=== PATIENT | female | born 1940 | race Caucasian/White ===

== ENCOUNTER → 2018-09-30 10:38 | Outpatient (CLI) | payer MEDICARE, SELFPAY ==
--- NOTE | 2018-09-30 | DI.MG.S_ITS ---
BILATERAL DIGITAL SCREENING MAMMOGRAM 3D/2D WITH CAD: 09/30/2018 CLINICAL: Routine screening. Family history of breast cancer. Comparison is made to exams dated: 08/16/2017 mammogram - [facility], 08/15/2016 mammogram, 08/04/2015 mammogram, 07/27/2014 mammogram, 07/14/2013 mammogram, and 04/26/2009 mammogram - [facility]. There are scattered fibroglandular elements in both breasts. Current study was also evaluated with a Computer Aided Detection (CAD) system. There are benign post operative findings in the left breast. There also are benign vascular calcifications in both breasts. No significant masses, calcifications, or other findings are seen in either breast. There has been no significant interval change. IMPRESSION: There is no mammographic evidence of malignancy. A 1 year screening mammogram is recommended. This exam was interpreted at Station ID: [id number]. NOTE: For mammograms, a report in lay terms will be sent to the patient. Approximately 15% of breast malignancies will not be visualized mammographically. In the management of a palpable breast mass, a negative mammogram must not discourage biopsy of a clinically suspicious lesion. Electronically Signed By: Boby brown/gerardo:10/01/2018 13:30:01 letter sent: Normal Exam ACR BI-RADS Category 2: Benign Finding(s) 3342F
== END ==
PROVIDERS: PCP Family Medicine; Visit Provider Family Medicine
DX: Z12.31 Encounter for screening mammogram for malignant neoplasm of breast (principal); Z80.3 Family history of malignant neoplasm of breast
CPT/HCPCS: 77063; 77067

== ENCOUNTER 2019-06-29 18:04 | Emergency (ER) | payer MEDICARE, SELFPAY ==
[2019-06-29 18:18] VITALS: BP 162/89; PULSE 90; RESP 18; TEMP 36.7; O2SAT 97; BMI 22.8
[2019-06-29 19:00] LABS: Add Manual Diff / Slide Review NO; Basophils Absolute Auto 100 /uL (0-100); Basophils Percent Auto 0.7 % (0-2); Eosinophils Absolute Auto 0 /uL (0-450); Eosinophils Percent Auto 0.5 % (2-4); Hematocrit 40.3 % (36-46); Hemoglobin 13.4 g/dL (12.0-16.0); Lymphocytes Absolute Auto 2500 /uL (1100-4500); Lymphocytes Percent Auto 29.8 % (25-40); Mean Corpuscular HGB Conc 33.4 % (30-36); Mean Corpuscular Hemoglobin 31.1 PG (26-34); Mean Corpuscular Volume 93.1 fL (80-100); Monocytes Absolute Auto 800 /uL (0-900); Monocytes Percent Auto 10.1 % (3-14); Neutrophils Absolute Auto 4900 /uL (1500-7000); Neutrophils Percent Auto 58.9 % (50-75); Platelet Count 347 X10^3/uL (150-400); Red Blood Cell Count 4.32 X10^6/uL (4.0-5.2); Red Cell Distribution Width 13.8 % (11.6-14.8); White Blood Cell Count 8.3 X10^3/uL (4.5-11.0)
[2019-06-29 19:06] LABS: Prothrombin Time 11.4 SECONDS (10.1-12.7)
[2019-06-29 19:09] LABS: PTT Partial Thromboplastin Tim 33 SECONDS (26.4-36.2)
[2019-06-29 19:10] LABS: Alanine Aminotransferase 56 IU/L (<35); Albumin 4.4 g/dL (3.5-5.0); Albumin Globulin Ratio 1.3 (1.0-2.8); Alkaline Phosphatase 215 U/L (38-126); Aspartate Aminotransferase 55 IU/L (14-36); BUN Creatinine Ratio 23.8 (6-22); Bilirubin Total 0.3 mg/dL (0.2-1.3); Blood Urea Nitrogen 19 mg/dL (7-17); Calcium 9.6 mg/dL (8.4-10.2); Carbon Dioxide 29 mmol/L (22-32); Chloride 102 mmol/L (98-107); Estimated Glomerular Filt Rate > 60.0 mL/min (>60); Globulin 3.5 g/dL (1.7-4.1); Glucose 114 mg/dL (80-110); HEMOLYSIS < 15 (0-50); Potassium 3.9 mmol/L (3.4-5.1); Sodium 139 mmol/L (137-145); Total Protein 7.9 g/dL (6.3-8.2)
[2019-06-29 19:16] LABS: D Dimer 2292 ng/mL (<230)
--- NOTE | 2019-06-29 19:28 | DI.US.S_ITS ---
PROCEDURE: US PERIPH VENOUS LOW EXTREM RT INDICATIONS: R/O DVT, POSITIVE D-DIMER TECHNIQUE: Real-time imaging, as well as color and pulse Doppler interrogation, were performed of the lower extremity deep veins from the inguinal ligament to the popliteal fossa. COMPARISON: None. FINDINGS: The common femoral, femoral and popliteal veins are normally compressible, and free of intraluminal thrombus. Color and pulse Doppler demonstrate normal phasic intraluminal flow. There is normal augmentation response to distal compression maneuver. IMPRESSION: Negative for deep venous thrombosis. Note: Concordant preliminary findings given by the painter barrel upon the completion of the examination to NASEEM Looney at 2014 hrs. on June 29, 2019. Dictated by: Lee Handy M.D. on 06/29/2019 at 20:17 Approved by: Lee Handy M.D. on 06/29/2019 at 20:18
[2019-06-29 19:30] VITALS: BP 155/69; PULSE 82; RESP 20; O2SAT 96
[2019-06-29 20:00] VITALS: BP 188/84; PULSE 79; RESP 19; O2SAT 99
--- NOTE | 2019-06-29 20:01 | ED_ITS ---
HPI - Extremity Injury (Lower) <NASEEM Looney - Last Filed: 06/29/19 20:30> General Chief Complaint: Extremity Injury, Lower Stated Complaint: rt ankle pain Time Seen by Provider: 06/29/19 19:06 Mode of arrival: Wheelchair History of Present Illness HPI Narrative: 78-year-old female presents emergency department complaining of right calf pain. She recently had ortho surgery 2 weeks ago for a repair of a tib-fib fracture from falling. She also sustained a left fibula fracture in the fall. Patient woke up this morning feeling a dull aching intermittent right- sided 5/10 calf pain which has now resolved. However, she is concern for a DVT. She does not have a history of DVT and has been taking to baby aspirin since the surgery. Patient denies any other symptoms such as numbness, tingling, decrease temp in limb, nausea, vomiting, diarrhea, chest pain, shortness of breath, dizziness, or other concerns. Related Data Home Medications Medication Instructions Recorded Confirmed omeprazole 20 mg PO Q DAY #0 02/26/11 temazepam 15 mg PO HS #0 02/26/11 Allergies Allergy/AdvReac Type Severity Reaction Status Date / Time Sulfa (Sulfonamide Allergy Unknown Verified 06/29/19 18:18 Antibiotics) diphenhydramine AdvReac Verified 06/29/19 18:18 [From Benadryl] Review of Systems <NASEEM Looney - Last Filed: 06/29/19 20:30> Review of Systems Narrative: REVIEW OF SYSTEMS: GENERAL: Denies fever or chills. HENT: No head trauma. EYES: No double vision changes. CARDIOVASCULAR: No chest pain or syncope. RESPIRATORY: No shortness of breath or cough. GASTROINTESTINAL: No nausea, vomiting, diarrhea, or constipation. MUSCULOSKELETAL: Complains of calf pain, see HPI. INTEGUMENTARY: No rash. NEURO: No numbness, tingling. PSYCH: No behavior or mood changes. Patient History <NASEEM Looney - Last Filed: 06/29/19 20:30> Surgical History Status post appendectomy Status post breast biopsy Status post cholecystectomy Status post hysterectomy Family History Brother Heart disease Hypertension Father Diabetes mellitus Heart disease Hypertension High cholesterol Grandfather Diabetes mellitus Mother Cancer Sister Age: 84 High cholesterol Sister Age: 81 Autoimmune disease Exam <NASEEM Looney - Last Filed: 06/29/19 20:30> Initial Vital Signs Initial Vital Signs: Vital Signs Temperature 98.1 F 06/29/19 18:18 Pulse Rate 90 06/29/19 18:18 Respiratory Rate 18 06/29/19 18:18 Blood Pressure 162/89 H 06/29/19 18:18 Pulse Oximetry 97 06/29/19 18:18 PHYSICAL EXAMINATION: GENERAL: Well groomed, alert, and cooperative. Answers questions promptly and appropriately. Vital signs noted. HENT: Normocephalic, atraumatic. EYES: Symmetrical, sclera white, no periorbital swelling. CARDIOVASCULAR: S1 and S2 sounds normal. Regular rate and rhythm, no murmurs, clicks, or bruits. No pedal edema. RESPIRATORY: Normal respiratory rate, trachea midline, airway patent. No stridor, nasal flaring or accessory muscle use. Lungs are clear in all pang. MUSCULOSKELETAL: Slight tenderness to right calf, no knee or upper leg tenderness or bruising. Patient able to move all toes. No erythema. Normal gait and coordination. Equal tone and mass bilaterally. EXTREMITIES: CMS intact. Popliteal pulse intact. SKIN: Warm, dry, soft, appropriate color for ethnicity. No lesions, rashes, or wounds. NEURO: Alert and Oriented X 3. No sensory deficits. PSYCH: Appropriate affect and mood. <Mich Lawrence DO - Last Filed: 06/29/19 20:33> Initial Vital Signs Initial Vital Signs: Vital Signs Temperature 98.1 F 06/29/19 18:18 Pulse Rate 90 06/29/19 18:18 Respiratory Rate 18 06/29/19 18:18 Blood Pressure 162/89 H 06/29/19 18:18 Pulse Oximetry 97 06/29/19 18:18 Course <NASEEM Looney - Last Filed: 06/29/19 20:30> Orders Ordered: ED Orders 06/29/19 18:52 CBC Auto Diff [Complete Blood Count AUTO DIFF] Stat Comprehensive Metabolic Panel Stat DD [D Dimer] Stat Partial Thromboplastin Time Stat Prothrombin Time INR Stat 06/29/19 19:28 [facility] venous low extrem rt Stat Vital Signs Vital signs: Vital Signs - 8 hr 06/29/19 18:18 06/29/19 19:30 06/29/19 20:00 Temperature 98.1 F Pulse Rate 90 82 79 Respiratory Rate 18 20 19 Blood Pressure 162/89 H Blood Pressure [Right Arm] 155/69 H 188/84 H Pulse Oximetry 97 96 99 <Mich Lawrence DO - Last Filed: 06/29/19 20:33> Orders Ordered: ED Orders 06/29/19 18:52 CBC Auto Diff [Complete Blood Count AUTO DIFF] Stat Comprehensive Metabolic Panel Stat DD [D Dimer] Stat Partial Thromboplastin Time Stat Prothrombin Time INR Stat 06/29/19 19:28 perip venous low extrem rt Stat Vital Signs Vital signs: Vital Signs - 8 hr 06/29/19 18:18 06/29/19 19:30 06/29/19 20:00 Temperature 98.1 F Pulse Rate 90 82 79 Respiratory Rate 18 20 19 Blood Pressure 162/89 H Blood Pressure [Right Arm] 155/69 H 188/84 H Pulse Oximetry 97 96 99 MDM - Extremity Injury (Lower) <NASEEM Looney - Last Filed: 06/29/19 20:30> Medical Records Attestation: I reviewed the patient's medical records. Lab Data Attestation: I reviewed the patient's lab results. Result diagrams: 06/29/19 18:52 06/29/19 18:52 Labs: Lab Results 06/29/19 06/29/19 06/29/19 Range/Units 18:52 18:52 18:52 WBC 8.3 (4.5-11.0) X10^3/uL RBC 4.32 (4.0-5.2) X10^6/uL Hgb 13.4 (12.0-16.0) g/dL Hct 40.3 (36-46) % MCV 93.1 (80-100) fL MCH 31.1 (26-34) PG MCHC 33.4 (30-36) % RDW 13.8 (11.6-14.8) % Plt Count 347 (150-400) X10^3/uL Neut % (Auto) 58.9 (50-75) % Lymph % (Auto) 29.8 (25-40) % [place] % (Auto) 10.1 (3-14) % Eos % (Auto) 0.5 L (2-4) % Baso % (Auto) 0.7 (0-2) % Neut # (Auto) 4900 (0187-0305) /uL Lymph # (Auto) 2500 (9766-5852) /uL [place] # (Auto) 800 (0-900) /uL Eos # (Auto) 0 (0-450) /uL Baso # (Auto) 100 (0-100) /uL PT 11.4 (10.1-12.7) SECONDS INR 1.0 (0.9-1.3) APTT 33 (26.4-36.2) SECONDS D-Dimer 2292 H (<230) ng/mL Sodium 139 (137-145) mmol/L Potassium 3.9 (3.4-5.1) mmol/L Chloride 102 (98-107) mmol/L Carbon Dioxide 29 (22-32) mmol/L BUN 19 H (7-17) mg/dL Creatinine 0.80 (0.52-1.04) mg/dL Estimated GFR > 60.0 (>60) mL/min BUN/Creatinine Ratio 23.8 H (6-22) Glucose 114 H (80-110) mg/dL Calcium 9.6 (8.4-10.2) mg/dL Total Bilirubin 0.3 (0.2-1.3) mg/dL AST 55 H (14-36) IU/L ALT 56 H (<35) IU/L Alkaline Phosphatase 215 H (38-126) U/L Total Protein 7.9 (6.3-8.2) g/dL Albumin 4.4 (3.5-5.0) g/dL Globulin 3.5 (1.7-4.1) g/dL Albumin/Globulin Ratio 1.3 (1.0-2.8) Imaging Data Extremity x-ray #1: Radiologist's Impression: [address] [place] [id number] Ultrasound Report Signed Patient: Linh Coffey AMR#: [id number] : 1941Acct:[id number] Age/Sex: 78 / FDate of Service: 06/29/19 Loc: ED Accession Number: [id number] Procedure: US periph venous low extrem rt Ordering Provider: Chel Acharya PROCEDURE: US PERIP VENOUS LOW EXTREM RT INDICATIONS: R/O DVT, POSITIVE D-DIMER TECHNIQUE: Real-time imaging, as well as color and pulse Doppler interrogation, were performed of the lower extremity deep veins from the inguinal ligament to the popliteal fossa. COMPARISON: None. FINDINGS: The common femoral, femoral and popliteal veins are normally compressible, and free of intraluminal thrombus. Color and pulse Doppler demonstrate normal phasic intraluminal flow. There is normal augmentation response to distal compression maneuver. IMPRESSION: Negative for deep venous thrombosis. Note: Concordant preliminary findings given by the marketing services vice president upon the compl etion of the examination to NASEEM Looney at 2014 hrs. on June 29, 2019. Dictated by: Lee Handy M.D. on 06/29/2019 at 20:17 Approved by: Lee Handy M.D. on 06/29/2019 at 20:18 [facility] Narrative Medical decision making narrative: 78-year-old female presenting to the emergency department for rule out DVT to right leg post tib-fib reconstruction surgery 2 weeks ago. Patient had a positive D-dimer and a negative ultrasound. She was encouraged to repeat this test in 1-2 weeks. Differential includes muscle spasm, calf strain, and pain related to healing fracture. Less likely compartment syndrome as CMS remains intact, patient is able to move toes, pain has resolved upon presentation the emergency department. Patient was encouraged to follow up with her orthopedic next week. She agrees with plan of care verbalized understanding. <Mich Lawrence, DO - Last Filed: 06/29/19 20:33> Lab Data Labs: Lab Results 06/29/19 06/29/19 06/29/19 Range/Units 18:52 18:52 18:52 WBC 8.3 (4.5-11.0) X10^3/uL RBC 4.32 (4.0-5.2) X10^6/uL Hgb 13.4 (12.0-16.0) g/dL Hct 40.3 (36-46) % MCV 93.1 (80-100) fL MCH 31.1 (26-34) PG MCHC 33.4 (30-36) % RDW 13.8 (11.6-14.8) % Plt Count 347 (150-400) X10^3/uL Neut % (Auto) 58.9 (50-75) % Lymph % (Auto) 29.8 (25-40) % [place] % (Auto) 10.1 (3-14) % Eos % (Auto) 0.5 L (2-4) % Baso % (Auto) 0.7 (0-2) % Neut # (Auto) 4900 (8967-8604) /uL Lymph # (Auto) 2500 (1871-4947) /uL [place] # (Auto) 800 (0-900) /uL Eos # (Auto) 0 (0-450) /uL Baso # (Auto) 100 (0-100) /uL PT 11.4 (10.1-12.7) SECONDS INR 1.0 (0.9-1.3) APTT 33 (26.4-36.2) SECONDS D-Dimer 2292 H (<230) ng/mL Sodium 139 (137-145) mmol/L Potassium 3.9 (3.4-5.1) mmol/L Chloride 102 (98-107) mmol/L Carbon Dioxide 29 (22-32) mmol/L BUN 19 H (7-17) mg/dL Creatinine 0.80 (0.52-1.04) mg/dL Estimated GFR > 60.0 (>60) mL/min BUN/Creatinine Ratio 23.8 H (6-22) Glucose 114 H (80-110) mg/dL Calcium 9.6 (8.4-10.2) mg/dL Total Bilirubin 0.3 (0.2-1.3) mg/dL AST 55 H (14-36) IU/L ALT 56 H (<35) IU/L Alkaline Phosphatase 215 H (38-126) U/L Total Protein 7.9 (6.3-8.2) g/dL Albumin 4.4 (3.5-5.0) g/dL Globulin 3.5 (1.7-4.1) g/dL Albumin/Globulin Ratio 1.3 (1.0-2.8) Discharge Plan Departure Patient Disposition: Home Clinical Impression: Calf pain Qualifiers: Laterality: right Qualified Code(s): M79.661 - Pain in right lower leg Discharge Date/Time: 06/29/19 20:32 Instructions: DI for Deep Vein Thrombosis Activity Restrictions/Additional Instructions: Thank you for entrusting me with your care today. As discussed, your ultrasound is negative for a blood clot. I have included instructions on what to watch for if symptoms worsen, I recommend following up with your primary care provider or orthopedic for further evaluation in 1-2 weeks. A repeat ultrasound may be indicated. Return emergency department for any new or worsening symptoms such as chest pain, shortness of breath, dizziness, severe pain, or other concerns. Continue taking her aspirin as prescribed. Prescriptions: No Action temazepam 15 MG capsule 15 mg PO HS Qty: 0 RF: 0 omeprazole 20 MG tablet,delayed release (DR/EC) 20 mg PO Q DAY Qty: 0 RF: 0 Referrals: Keeann Feliciano MD [Primary Care Provider] - <Mich Lawrence DO - Last Filed: 06/29/19 20:33> Sign Out Provider Sign Out Attestation: Dr Lawrence Co-Sign Statement: I was available for consultation during this patient's emergency department visit. This chart is signed by myself for administrative purposes only. I did not have direct contact with this patient during this visit. They were seen independently by the APC.
== END 2019-06-29 20:32 | disposition home or self-care (01) ==
PROVIDERS: Emergency Medicine; Emergency Provider Nurse Practitioner; PCP Family Medicine; Referring Provider Orthopaedic Surgery
DX: M79.661 Pain in right lower leg (principal)
CPT/HCPCS: 36415; 80053; 85025; 85379; 85610; 85730; 93971; 99283; 99284

== ENCOUNTER → 2020-02-05 10:50 | Outpatient (CLI) | payer MEDICARE, SELFPAY ==
--- NOTE | 2020-02-05 11:02 | DI.MG.S_ITS ---
Patient Name: DUSTIN LOREDO date: 1940 Sex: F Attending Physician: Braden Indications: Date: 02/05/2020 10:56 At the request of: BRITTNEY GAN Procedure: MM screening mammo BI BILATERAL DIGITAL SCREENING MAMMOGRAM 3D/2D WITH CAD: 02/05/2020 CLINICAL: Routine screening. Family history of breast cancer. Comparison is made to exams dated: 09/30/2018 mammogram, 08/16/2017 mammogram - [facility], and 08/15/2016 mammogram - [facility]. There are scattered fibroglandular elements in both breasts. Current study was also evaluated with a Computer Aided Detection (CAD) system. There are benign vascular calcifications in both breasts. There also are benign post operative findings in the left breast. No significant masses, calcifications, or other findings are seen in either breast. There has been no significant interval change. IMPRESSION: BENIGN There is no mammographic evidence of malignancy. A 1 year screening mammogram is recommended. This exam was interpreted at Station ID: [id number]. NOTE: For mammograms, a report in lay terms will be sent to the patient. Approximately 15% of breast malignancies will not be visualized mammographically. In the management of a palpable breast mass, a negative mammogram must not discourage biopsy of a clinically suspicious lesion. Electronically Signed By: Sameer franco/gerardo:02/05/2020 12:38:39 letter sent: Normal Exam ACR BI-RADS Category 2: Benign Finding(s) 3342F Continued Report - Page 2 of 2 Patient Name: DUSTIN LOREDO date: 1940 Sex: F Attending Physician: Braden Indications: Date: 02/05/2020 10:56 At the request of: BRITTNEY GAN Procedure: MM screening mammo BI
== END ==
PROVIDERS: PCP Family Medicine; Referring Provider Family Medicine; Visit Provider Family Medicine
DX: Z12.31 Encounter for screening mammogram for malignant neoplasm of breast (principal); Z80.3 Family history of malignant neoplasm of breast
CPT/HCPCS: 77063; 77067

== ENCOUNTER → 2020-07-12 12:17 | Outpatient (CLI) | payer MEDICARE, SELFPAY ==
--- NOTE | 2020-07-12 12:20 | DI.RAD.S_ITS ---
PROCEDURE: XR DEXA AXIAL SKELETON INDICATIONS: SCREENING FOR OSTEOPOROSIS COMPARISON: [facility], CR, DEXA AXIAL SKELETON, 08/15/2016, 11:28. FINDINGS: This blank DEXA report has been sent in error by the PACS system. The correct and complete report will be forthcoming in 1-2 days. Thank you for your patience and understanding. Dictated by: Jill Toney MD, PhD on 07/12/2020 at 17:25 Approved by: Jill Toney MD, PhD on 07/12/2020 at 17:25
== END ==
PROVIDERS: PCP Family Medicine; Referring Provider Family Medicine; Visit Provider Family Medicine
DX: Z13.820 Encounter for screening for osteoporosis (principal); M85.851 Other specified disorders of bone density and structure, right thigh; Z78.0 Asymptomatic menopausal state
CPT/HCPCS: 77080

== ENCOUNTER → 2020-08-09 12:07 | Outpatient (CLI) | payer MEDICARE, SELFPAY ==
--- NOTE | 2020-08-09 | DI.MRI.S_ITS ---
PROCEDURE: MR KNEE LT WO CON INDICATIONS: UNSPECIFIED DERANGEMENT OF LEFT KNEE TECHNIQUE: Noncontrast sagittal PD fast spin echo and T2 fast spin echo with fat saturation, sagittal 3-D FLASH with fat saturation; coronal T1 spin echo and PD fast spin echo with fat saturation, and axial PD fast spin echo with fat saturation through the knee. COMPARISON: None. FINDINGS: Image quality: Excellent. Menisci: There is complex oblique tear involving body and posterior horn of medial meniscus extending to both superior and inferior articulating surfaces. There is peripheral displacement of medial meniscus bowing medial collateral ligament. There is no evidence of focal lateral meniscal tear. The meniscal root ligaments appear intact. Cruciate ligaments: The anterior and posterior cruciate ligaments appear intact. Medial structures: Low-grade MCL sprain is seen. The posterior oblique ligament, semimembranosus tendon insertions, oblique popliteal ligament, and meniscocapsular junction appear intact. Visualized portions of the pes anserinus tendons appear normal. No abnormal bursal fluid. Lateral structures: The lateral collateral ligament, long and short heads of the biceps femoris tendon appear intact. The popliteus tendon appears normal; the popliteofibular ligament appears intact. The posterosuperior and anteroinferior popliteomeniscal fascicles appear intact. The arcuate and fabellofibular ligaments appear intact, on either side of the lateral inferior geniculate artery. Iliotibial band appears normal. Anterior structures: The quadriceps and patellar tendons appear intact. Patellar alignment is normal. No femoral trochlear dysplasia or ventral trochlear prominence. No edema in the infrapatellar fat pad. 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 No fracture or dislocation. Joint space: There is small amount of joint fluid. No Garcia's cyst. Normal appearing synovial plicae are incidentally noted. IMPRESSION: 1. 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 No fracture or dislocation. Small amount of joint fluid. 2. Complex oblique tear involving body and posterior horn of medial meniscus extending to both superior and inferior articulating surfaces. Peripheral displacement of medial meniscus bowing medial collateral ligament. 3. Low-grade MCL sprain. Cruciate ligaments are intact. Dictated by: Avery Osman M.D. on 08/09/2020 at 13:44 Approved by: Avery Osman M.D. on 08/09/2020 at 14:30
== END ==
PROVIDERS: PCP Family Medicine; Referring Provider Family Medicine; Visit Provider Family Medicine
DX: S83.232A Complex tear of medial meniscus, current injury, left knee, initial encounter (principal); S83.412A Sprain of medial collateral ligament of left knee, initial encounter; M17.12 Unilateral primary osteoarthritis, left knee; M94.262 Chondromalacia, left knee
CPT/HCPCS: 73721

== ENCOUNTER → 2021-02-21 15:49 | Outpatient (CLI) | payer MEDICARE, SELFPAY ==
--- NOTE | 2021-02-21 | DI.MG.S_ITS ---
BILATERAL DIGITAL SCREENING MAMMOGRAM 3D/2D WITH CAD: 02/21/2021 CLINICAL: Routine screening. Family history of breast cancer. Comparison is made to exams dated: 02/05/2020 mammogram, 09/30/2018 mammogram, and 08/16/2017 mammogram - [facility]. There are scattered fibroglandular elements in both breasts. Current study was also evaluated with a Computer Aided Detection (CAD) system. There are benign vascular calcifications in both breasts. There also are benign post operative findings in the left breast. No significant masses, calcifications, or other findings are seen in either breast. There has been no significant interval change. IMPRESSION: BENIGN There is no mammographic evidence of malignancy. A 1 year screening mammogram is recommended. This exam was interpreted at Station ID: [id number]. NOTE: For mammograms, a report in lay terms will be sent to the patient. Approximately 15% of breast malignancies will not be visualized mammographically. In the management of a palpable breast mass, a negative mammogram must not discourage biopsy of a clinically suspicious lesion. Electronically Signed By: Raj carr/gerardo:02/21/2021 17:02:44 letter sent: Normal Exam ACR BI-RADS Category 2: Benign Finding(s) 3342F
== END ==
PROVIDERS: PCP Family Medicine; Referring Provider Family Medicine; Visit Provider Family Medicine
DX: Z12.31 Encounter for screening mammogram for malignant neoplasm of breast (principal); Z80.3 Family history of malignant neoplasm of breast
CPT/HCPCS: 77063; 77067

== ENCOUNTER → 2021-06-28 12:22 | Outpatient (CLI) | payer MEDICARE, SELFPAY ==
--- NOTE | 2021-06-28 | DI.MG.S_ITS ---
UNILATERAL RIGHT DIGITAL DIAGNOSTIC MAMMOGRAM 3D/2D: 06/28/2021 CLINICAL: Right breast pain. Comparison is made to exams dated: 02/21/2021 mammogram, 02/05/2020 mammogram, and 09/30/2018 mammogram - [facility]. There are scattered fibroglandular elements in right breast. There are benign vascular calcifications in the right breast. No significant masses, calcifications, or other findings are seen in the breast. No abnormality which corresponds with the area of pain is identified. IMPRESSION: BENIGN There is no abnormality seen in the right breast to correspond with the pain, however, clinical followup is recommended. There is no mammographic evidence of malignancy. A 1 year screening mammogram is recommended. This exam was interpreted at Station ID: [id number]. NOTE: For mammograms, a report in lay terms will be sent to the patient. Approximately 15% of breast malignancies will not be visualized mammographically. In the management of a palpable breast mass, a negative mammogram must not discourage biopsy of a clinically suspicious lesion. Electronically Signed By: Panfilo Du acr/:06/28/2021 12:55:17 letter sent: Normal Exam ACR BI-RADS Category 2: Benign Finding(s) 3342F
== END ==
PROVIDERS: PCP Physician Assistant Medical; Referring Provider Physician Assistant Medical; Visit Provider Physician Assistant Medical
DX: N64.4 Mastodynia (principal); R92.2 Inconclusive mammogram
CPT/HCPCS: 77065; G0279

== ENCOUNTER → 2022-07-18 11:12 | Outpatient (CLI) | payer MEDICARE, SELFPAY ==
--- NOTE | 2022-07-18 | DI.MG.S_ITS ---
BILATERAL DIGITAL SCREENING MAMMOGRAM 3D/2D WITH CAD: 07/18/2022 CLINICAL: Routine screening. Family history of breast cancer. Comparison is made to exams dated: 06/28/2021 mammogram, 02/21/2021 mammogram, 02/05/2020 mammogram, and 09/30/2018 mammogram - [facility]. There are scattered areas of fibroglandular density in both breasts (category b / 25%-50% glandular tissue). Current study was also evaluated with a Computer Aided Detection (CAD) system. There are benign vascular calcifications in both breasts. No significant masses, calcifications, or other findings are seen in either breast. There has been no significant interval change. IMPRESSION: BENIGN There is no mammographic evidence of malignancy. A 1 year screening mammogram is recommended. Based on the Tyrer Cuzick model (a risk assessment model) the patient's lifetime risk is 1.4% and her 10 year risk is 0.0%. According to the ACR, ACS, and NCCN guidelines, an annual breast MRI exam along with mammogram is recommended if the patient's lifetime risk is 20% or greater. This exam was interpreted at Station ID: [id number]. NOTE: For mammograms, a report in lay terms will be sent to the patient. Approximately 15% of breast malignancies will not be visualized mammographically. In the management of a palpable breast mass, a negative mammogram must not discourage biopsy of a clinically suspicious lesion. Electronically Signed By: Martín france/gerardo:07/18/2022 16:47:08 letter sent: Normal Exam ACR BI-RADS Category 2: Benign Finding(s) 3342F
== END ==
PROVIDERS: PCP Family Medicine; Referring Provider Family Medicine; Visit Provider Family Medicine
DX: Z12.31 Encounter for screening mammogram for malignant neoplasm of breast (principal); Z80.3 Family history of malignant neoplasm of breast
CPT/HCPCS: 77063; 77067

== ENCOUNTER → 2023-07-23 13:32 | Outpatient (CLI) | payer MEDICARE, SELFPAY ==
--- NOTE | 2023-07-23 13:34 | DI.MG.S_ITS ---
BILATERAL DIGITAL SCREENING MAMMOGRAM 3D/2D WITH CAD: 07/23/2023 CLINICAL: Routine screening. Family history of breast cancer. Comparison is made to exams dated: 07/18/2022 mammogram, 06/28/2021 mammogram, and 02/21/2021 mammogram - [facility]. There are scattered areas of fibroglandular density in both breasts (category b / 25%-50% glandular tissue). Current study was also evaluated with a Computer Aided Detection (CAD) system. There are benign vascular calcifications in both breasts. No significant masses, calcifications, or other findings are seen in either breast. There has been no significant interval change. IMPRESSION: BENIGN There is no mammographic evidence of malignancy. A 1 year screening mammogram is recommended. Based on the Tyrer Cuzick model (a risk assessment model) the patient's lifetime risk is 1.0% and her 10 year risk is 0.0%. According to the ACR, ACS, and NCCN guidelines, an annual breast MRI exam along with mammogram is recommended if the patient's lifetime risk is 20% or greater. This exam was interpreted at Station ID: [id number]. NOTE: For mammograms, a report in lay terms will be sent to the patient. Approximately 15% of breast malignancies will not be visualized mammographically. In the management of a palpable breast mass, a negative mammogram must not discourage biopsy of a clinically suspicious lesion. Electronically Signed By: Sameer [email or web address]:07/23/2023 15:01:11 letter sent: Normal Exam ACR BI-RADS Category 2: Benign Finding(s) 3342F
== END ==
PROVIDERS: PCP Family Medicine; Referring Provider Family Medicine; Visit Provider Family Medicine
DX: Z12.31 Encounter for screening mammogram for malignant neoplasm of breast (principal); Z80.3 Family history of malignant neoplasm of breast; R92.323 Mammographic fibroglandular density, bilateral breasts
CPT/HCPCS: 77063; 77067